=== PATIENT | male | born 1960 | race African-American/Black ===

== ENCOUNTER 2018-05-24 12:07 | Emergency (ER) | payer BC ==
[2018-05-24 12:26] VITALS: BP 135/83
--- NOTE | 2018-05-24 12:45 | UC ---
Back Pain HPI - HPI Summary HPI Summary: 57-year-old male with low back pain that radiates down the leg. He was treated previously for sciatica without much relief. Patient states for approximately 3 months on and off he has had some back pain and pain that starts in his pocket and radiates into the back of his knee. He did go to his primary care doctor who gave him a shot of Toradol and it didn't help and for short periods currently the pain is 2 out of 10 and slightly nagging. He denies incontinence he denies any foot drop or any weakness in the lower [place]. He states he does have "a bad back" but has not had significant workup in the past. 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 - History of Current Complaint Chief Complaint: UCGeneralIllness Stated Complaint: LEFT LEG PAIN Time Seen by Provider: 05/24/18 12:36 Hx Obtained From: Patient Onset/Duration: Gradual Onset Timing: Constant Pain Intensity: 2 Character: Dull, Aching Aggravating Factor(s): Movement Alleviating Factor(s): Rest - Allergies/Home Medications Allergies/Adverse Reactions: Allergies Allergy/AdvReac Type Severity Reaction Status Date / Time No Known Allergies Allergy Verified 05/24/18 12:26 Home Medications: Home Medications Lisinopril TAB* [Prinivil TAB*] 20 mg PO DAILY 05/24/18 [History Confirmed 05/24] PMH/Surg Hx/FS Hx/Imm Hx Previously Healthy: Yes Cardiovascular History: Hypertension - Surgical History Surgical History: None - Family History Known Family History: Positive: Hypertension - Social History Occupation: Employed Full-time Lives: With Family Alcohol Use: Rare Substance Use Type: None Smoking Status (MU): Heavy Every Day Tobacco Smoker Type: Cigarettes Review of Systems Musculoskeletal: Arthralgia Is Patient Immunocompromised?: No All Other Systems Reviewed And Are Negative: Yes Physical Exam Triage Information Reviewed: Yes Appearance: Well-Appearing, No Pain Distress, Well-Nourished Vital Signs: Initial Vital Signs Temp 98.9 F 05/24/18 12:19 Pulse 73 05/24/18 12:19 Resp 16 05/24/18 12:19 BP 135/83 05/24/18 12:19 Pulse Ox 99 05/24/18 12:19 Vital Signs Reviewed: Yes Eye Exam: Normal ENT Exam: Normal Dental Exam: Normal Neck exam: Normal Neck: Positive: 1 Respiratory Exam: Normal Cardiovascular Exam: Normal Musculoskeletal Exam: Normal Musculoskeletal: Positive: Strength Intact, ROM Intact, No Edema, Other: - left piriformis tenderness to palpation. neg SLR. No foot drop. Mild antalgic gait. Neurological Exam: Normal Neurological: Positive: Alert Psychological Exam: Normal Skin Exam: Normal Back Pain Course/Dx - Course Course Of Treatment: At this time. With Medrol Dosepak for mild radiculopathy. If symptoms persist he is advised to return to primary care doctor or consider pain management physician. No red flags at this time. Advised to start physical therapy but he declined at this time. He will continue with the intermittent anti-inflammatory with a meal and ensure to follow up with primary care. - Differential Dx/Diagnosis Differential Diagnosis/HQI/PQRI: Arthritis, Herniated Disc, Strain, Sprain Provider Diagnoses: Piriformis syndrome. Sciatica Discharge - Sign-Out/Discharge Documenting (check all that apply): Patient Departure All imaging exams completed and their final reports reviewed: No Studies - Discharge Plan Condition: Good Disposition: HOME Prescriptions: methylPREDNISolone [Medrol Dosepak 4 MG*] 0 mg PO .SEE [employer]SON INSTRUCTION #1 tab Patient Education Materials: Piriformis Syndrome (ED) Referrals: Tommy Butler MD [Primary Care Provider] - 4 Days - Billing Disposition and Condition Condition: GOOD Disposition: Home
== END 2018-05-24 13:03 | disposition home or self-care (01) ==
LOC: UCCORT 12:07
DX: G57.00 Lesion of sciatic nerve, unspecified lower limb (principal); M54.30 Sciatica, unspecified side; I10 Essential (primary) hypertension; F17.210 Nicotine dependence, cigarettes, uncomplicated
CPT/HCPCS: 99212; G0463